=== PATIENT | female | born 1985 | race Caucasian/White ===

== ENCOUNTER 2017-07-26 16:11 | Observation (INO) | payer BC, OTHER ==
[~2017-07-26] VITALS: Ht 170.2 cm; Wt 59.0 kg
[2017-07-26] MEDS ORDERED: FLUO40CA2 PO (16:42)
[2017-07-26] MEDS ORDERED: LURA40TA PO (16:43)
[2017-07-26] MEDS ORDERED: PRAZ1CAP2 PO (16:44)
[2017-07-26] MEDS ORDERED: LITH150C PO (16:45)
[2017-07-26] MEDS ORDERED: LEVO125T5 PO (16:45)
[2017-07-26] MEDS ORDERED: DIPH25CA61 PO (16:46)
[2017-07-26 16:47] LABS: HEMATOCRIT 36.6 % (34.6-47.8); HEMOGLOBIN 12.1 g/dL (11.7-16.4); WHITE BLOOD COUNT 6.4 x10^3/uL (3.4-10)
[2017-07-26] MEDS ORDERED: CLON2TAB2 PO (16:47)
[2017-07-26] MEDS ORDERED: DESO1TAB68 PO (16:49)
[2017-07-26 17:00] LABS: BLOOD UREA NITROGEN 13 mg/dL (7-18)
[2017-07-26 17:13] LABS: ACETAMINOPHEN < 2 mcg/mL (10-30)
[2017-07-26] MEDS ORDERED: ZIPRASIDONE 20 MG INJ IM ONE ×2 (18:00→18:29)
[2017-07-26] MEDS ORDERED: LORazepam 1MG TABLET ONE (18:28)
[2017-07-26] MEDS ORDERED: LORazepam 1MG TABLET PO ONE (18:30)
[2017-07-26 19:11] LABS: DAU SCREEN DISCLAIMER
[2017-07-26] MEDS ORDERED: ONDANSETRON ODT 4 MG PO PRN (19:30)
[2017-07-26] MEDS ORDERED: BISACODYL 10 MG SUPP PR PRN (19:30)
[2017-07-26] MEDS ORDERED: ACETAMINOPHEN 325 MG TABLET PO PRN (19:30)
[2017-07-26] MEDS ORDERED: POLYETHYLENE GLYCOL 17 GM PACKET PO PRN (19:30)
[2017-07-27 01:33] VITALS: BP 104/68
[2017-07-27] MEDS: PRAZOSIN 1 MG CAPSULE PO SCH ×2 (01:55→20:36)
[2017-07-27] MEDS: LITHIUM CARBONATE 150 MG CAPSULE PO SCH ×3 (01:56→20:36)
[2017-07-27] MEDS: DIPHENHYDRAMINE 25 MG CAPSULE PO SCH ×2 (01:56→20:37)
[2017-07-27] MEDS: LEVOTHYROXINE 125 MCG TABLET PO SCH (06:55)
[2017-07-27 07:30] VITALS: BP 91/51
[2017-07-27] MEDS: LURASIDONE 20 MG TABLET PO SCH (08:55)
[2017-07-27] MEDS: FLUOXETINE 20 MG CAPSULE PO SCH (08:56)
[2017-07-27] MEDS: [UNRECOGNIZED DRUG - OTHER] HOMEMEDPO SCH (09:00)
[2017-07-27] MEDS ORDERED: SENNA/DOCUSATE TABLET PO SCH (09:00)
[2017-07-27] MEDS: DESOGESTREL ETHINYL ESTRADIOL HOMEMEDPO SCH (09:00)
[2017-07-27 19:53] VITALS: BP 109/76
[2017-07-27] MEDS ORDERED: POLYETHYLENE GLYCOL 17 GM PACKET PO PRN ×2 (20:00→20:30)
[2017-07-27] MEDS ORDERED: BISACODYL 10 MG SUPP PR PRN ×2 (20:00→20:30)
[2017-07-27] MEDS ORDERED: ACETAMINOPHEN 325 MG TABLET PO PRN ×2 (20:00→20:30)
[2017-07-28] MEDS: LEVOTHYROXINE 125 MCG TABLET PO SCH (06:24)
[2017-07-28 08:00] VITALS: BP 99/61
[2017-07-28] MEDS: SENNA/DOCUSATE TABLET PO SCH (08:42)
[2017-07-28] MEDS: LURASIDONE 20 MG TABLET PO SCH (08:42)
[2017-07-28] MEDS: LITHIUM CARBONATE 150 MG CAPSULE PO SCH ×2 (08:43→20:58)
[2017-07-28] MEDS: FLUOXETINE 20 MG CAPSULE PO SCH (08:44)
[2017-07-28] MEDS ORDERED: SENNA/DOCUSATE TABLET PO SCH (09:00)
[2017-07-28] MEDS: DESOGESTREL ETHINYL ESTRADIOL HOMEMEDPO SCH (09:00)
[2017-07-28] MEDS: [UNRECOGNIZED DRUG - OTHER] HOMEMEDPO SCH (09:00)
[2017-07-28 19:50] VITALS: BP 104/67
[2017-07-28] MEDS: DIPHENHYDRAMINE 25 MG CAPSULE PO SCH (20:58)
[2017-07-28] MEDS: PRAZOSIN 1 MG CAPSULE PO SCH (20:59)
[2017-07-29 07:40] VITALS: BP 99/62
[2017-07-29] MEDS: LEVOTHYROXINE 125 MCG TABLET PO SCH (08:45)
[2017-07-29] MEDS: SENNA/DOCUSATE TABLET PO SCH (08:45)
[2017-07-29] MEDS: LURASIDONE 20 MG TABLET PO SCH (08:45)
[2017-07-29] MEDS: LITHIUM CARBONATE 150 MG CAPSULE PO SCH (08:46)
[2017-07-29] MEDS: DESOGESTREL ETHINYL ESTRADIOL HOMEMEDPO SCH (08:52)
[2017-07-29] MEDS: [UNRECOGNIZED DRUG - OTHER] HOMEMEDPO SCH (08:52)
[2017-07-29] MEDS: FLUOXETINE 20 MG CAPSULE PO SCH (08:57)
== END 2017-07-29 12:45 ==
LOC: ED 17:31 → EDIP 19:06 → 3E 07-27 01:17
PROVIDERS: ADMIT Internal Medicine; ATTEND Internal Medicine
DX: R45.851 Suicidal ideations (principal); F50.00 Anorexia nervosa, unspecified; N80.9 Endometriosis, unspecified; E03.9 Hypothyroidism, unspecified; F32.9 Major depressive disorder, single episode, unspecified; F12.90 Cannabis use, unspecified, uncomplicated; Z86.59 Personal history of other mental and behavioral disorders; Z91.5 Personal history of self-harm
CPT/HCPCS: 36415; 80048; 80307; 80329; 81003; 82040; 84439; 84443; 84703; 85025; 93005; 99285; G0378; Q0163; G0480